=== PATIENT | female | born 1975 | race Caucasian/White ===

== ENCOUNTER 2018-09-06 15:44 | Emergency (ER) | payer OTHER ==
[~2018-09-06] VITALS: Ht 157.5 cm; Wt 53.3 kg
[2018-09-06] MEDS ORDERED: LEVO125T5 PO (16:20)
--- NOTE | 2018-09-06 16:20 | NUR ---
First contact with pt. Pt c/o L eye "pressure" radiating to sinuses and up into L side of head starting today at 1345 and getting worse. Pt denies N/V, states opening her eyes makes the pain worse. Pt tearful, cooperative with exam. No neuro defecits noted. Pt placed in gown, positioned for comfort in bed with warm blanket, all safety measures observed. Continuous oxygen and BP Monitors applied.
[2018-09-06] MEDS ORDERED: DIPHENHYDRAMINE 50 MG/ML, 1ML ONE (16:25)
[2018-09-06] MEDS ORDERED: PROCHLORPERAZINE 5 MG/ML, 2ML ONE (16:25)
[2018-09-06] MEDS ORDERED: KETOROLAC 30 MG/1 ML ONE (16:25)
[2018-09-06] MEDS ORDERED: SODIUM CHLORIDE FLUSH 10ML SYR IVF ONE (16:30)
[2018-09-06] MEDS ORDERED: DIPHENHYDRAMINE 50 MG/ML, 1ML IVPush ONE (16:30)
[2018-09-06] MEDS ORDERED: KETOROLAC 30 MG/1 ML IVPush ONE (16:30)
[2018-09-06] MEDS ORDERED: PROCHLORPERAZINE 5 MG/ML, 2ML IVPush ONE (16:30)
--- NOTE | 2018-09-06 16:33 | NUR ---
Pt medicated per MAR.
[2018-09-06 16:36] LABS: BASOPHILS # (AUTO) 0.05 x10^3/uL (0-0.1); BASOPHILS % (AUTO) 1 % (0-1); EOSINOPHILS # (AUTO) 0.07 x10^3/uL (0-0.4); EOSINOPHILS % (AUTO) 1 % (1-7); LYMPHOCYTES # (AUTO) 1.48 x10^3/uL (1-3.4); LYMPHOCYTES % (AUTO) 22 % (22-44); MD NO; MEAN CORPUSCULAR HEMOGLOBIN 32.5 pg (27.0-34.8); MEAN CORPUSCULAR HGB CONC 33.7 g/dL (32.4-35.8); MEAN CORPUSCULAR VOLUME 96.6 fL (80-100); MEAN PLATELET VOLUME 7.6 fL (7.4-10.4); MONOCYTES # (AUTO) 0.61 x10^3/uL (0.2-0.8); MONOCYTES % (AUTO) 9 % (2-9); NEUTROPHILS # (AUTO) 4.61 x10^3/uL (1.8-6.8); NEUTROPHILS % (AUTO) 68 % (42-75); PLATELET COUNT 272 x10^3/uL (130-400); RED BLOOD COUNT 4.16 x10^6/uL (3.82-5.3); RED CELL DISTRIBUTION WIDTH 14.1 % (9.6-15.2)
--- NOTE | 2018-09-06 16:37 | NUR ---
Pt ambulatory to bathroom and back to bed without difficulty.
[2018-09-06 16:44] LABS: ALANINE AMINOTRANSFERASE 17 U/L (12-78); ALBUMIN 3.8 g/dL (3.4-5.0); ANION GAP 8 mmol/L (5-15); CALCIUM 8.9 mg/dL (8.5-10.1); CHLORIDE 109 mmol/L (98-107)
[2018-09-06 16:49] LABS: ALKALINE PHOSPHATASE 52 U/L (45-117); BILIRUBIN,TOTAL 0.2 mg/dL (0.2-1.0); FREE T4 (FREE THYROXINE) 1.32 ng/dL (0.76-1.46); TOTAL PROTEIN 7.4 g/dL (6.4-8.2)
[2018-09-06 16:55] LABS: THYROID STIMULATING HORMONE 0.167 mIU/L (0.358-3.740)
--- NOTE | 2018-09-06 17:06 | NUR ---
Pt states pain unchanged after medications given. Discussed with Lillie BREWER. Will recheck in 15 min.
--- NOTE | 2018-09-06 17:16 | NUR ---
PT REPORTS HEAD ACHE HAS NOT IMPROVED.
[2018-09-06] MEDS ORDERED: METOCLOPRAMIDE 5 MG/ML, 2ML ONE (17:25)
[2018-09-06] MEDS ORDERED: METOCLOPRAMIDE 5 MG/ML, 2ML IVPush ONE (17:30)
--- NOTE | 2018-09-06 17:30 | NUR ---
PT MEDICATED PER EMAR
--- NOTE | 2018-09-06 18:26 | NUR ---
Pt states SHERMAN not better, states L eye feels more swollen
[2018-09-06] MEDS ORDERED: NAPHAZOLINE/PHENIRAMINE OPHTH EACHEYE STA (18:38)
--- NOTE | 2018-09-06 18:57 | NUR ---
REPORT RECEIVED FROM VISH CHI.
[2018-09-06] MEDS ORDERED: PROPARACAINE OPHTH 0.5%, 15ML ONE (19:04)
[2018-09-06] MEDS ORDERED: PROPARACAINE OPHTH 0.5%, 15ML EACHEYE ONE (19:30)
--- NOTE | 2018-09-06 19:31 | NUR ---
PT MEDICATED PER EMAR FOR EYE PRESSURE. PT TOLERATED WELL.
[2018-09-06 20:14] VITALS: BP 109/88
== END 2018-09-06 20:16 | disposition home or self-care (01) ==
LOC: ED 19:31
DX: R51 Headache (principal); H18.822 Corneal disorder due to contact lens, left eye; Z88.5 Allergy status to narcotic agent
CPT/HCPCS: 36415; 70450; 80053; 84439; 84443; 84703; 85025; 96374; 96375; 99284; J0780; J1200; J1885; J2765